=== PATIENT | male | born 1955 | race Caucasian/White ===

== ENCOUNTER 2020-05-09 18:16 | Emergency (ER) | payer MEDICARE, BC ==
[~2020-05-09] VITALS: Ht 177.8 cm; Wt 80.7 kg
--- NOTE | 2020-05-09 18:24 | PHYS DOC ---
General Adult HPI: HPI: "..I got my finger tips almost completely twisted off...I was feeding a snake to clean out a offbearer sewer pipe drain.. the cotton gloves got caught.. and twisted off the tips of my fingers...".. Patient is a 64 year old male who presents with above history and injuries to fingers 3 4 and 5 on right hand. Tips of her fingers are angulated and have open fractures with the bone exposed. No distal sensation, and tips are dusky. Patient is right-hand dominant. Patient does not remember his last tetanus shot. No recent travel. No sick ill contacts. Patient last ate a meal at breakfast. No history immunosuppression. Pt. primary is Dr. Ibanez. Review of Systems: Review of Systems: Constitutional: Denies fever or chills Eyes: Denies change in visual acuity HENT: Denies nasal congestion or sore throat Respiratory: Denies cough or shortness of breath Cardiovascular: Denies chest pain or edema GI: Denies abdominal pain, nausea, vomiting, bloody stools or diarrhea : Denies dysuria Musculoskeletal: Complains of partial amputation to tips fingers 3 4 and 5 Integument: Denies rash Neurologic: Denies headache, focal weakness or sensory changes Endocrine: Denies polyuria or polydipsia Lymphatic: Denies swollen glands Psychiatric: Denies depression or anxiety Family History: Family History: Noncontributory to presentation Current Medications: Current Meds: See nursing for home meds Allergies: Allergies: No known drug allergies Physical Exam: PE: Constitutional: Well developed, well nourished,in acute distress, non-toxic appearance. [] HENT: Normocephalic, atraumatic, bilateral external ears normal, oropharynx moist, no oral exudates, nose normal. [] Eyes: PERRLA, EOMI, conjunctiva normal, no discharge. [] Neck: Normal range of motion, no tenderness, supple, no stridor. [] Cardiovascular:Heart rate regular rhythm, no murmur [] Lungs & Thorax: Bilateral breath sounds clear to auscultation [] Abdomen: Bowel sounds normal, soft, no tenderness, no masses, no pulsatile masses. [] Skin: Warm, dry, no erythema, no rash. [] Back: No tenderness, no CVA tenderness. [] Extremities: No tenderness, no cyanosis, no clubbing, ROM intact, no edema. Except injuries as noted and fingers 3, 4 and 5 right hand Neurologic: Alert and oriented X 3, normal motor function, normal sensory f unction, no focal deficits noted. [] Psychologic: Affect normal, judgement normal, mood normal. [] EKG: EKG: My interpretation of EKG shows a sinus bradycardia rhythm at 59 bpm. No acute morphology Radiology/Procedures: Radiology/Procedures: [][address] [address] IMAGING REPORT Signed PATIENT: CARMEN HUDDLESTON LACCOUNT: [id number] : 1955 LOCATION: ER AGE: 64 SEX: M EXAM STATUS: REG ER ORD. PHYSICIAN: KEELY ROSAS MD REASON: Injury, partial amputation fingers PROCEDURE: HAND RIGHT 3V Exam: Right hand 3 views INDICATION: Injury, partial amputation TECHNIQUE: Frontal, lateral and oblique views of the right hand Comparisons: None FINDINGS: There is open fractures of the distal phalanx of the third and fourth digit which are severely displaced. Joint spaces are well-maintained. Soft tissues are unremarkable. Bone mineralization is normal. IMPRESSION: Open fractures of the distal phalanx of the third fourth digits which are severely displaced. Electronically signed by: Jomar Baez MD (05/09/2020 7:02 PM) [facility] DICTATED AND SIGNED BY: JOMAR BAEZ MD DATE: 05/09/201901 CC: KEELY ROSAS MD; PCP,NO ~MTH0 0 Heart Score: Risk Factors: Risk Factors: DM, Current or recent (<one month) smoker, HTN, HLP, family history of CAD, obesity. Risk Scores: Score 0 - 3: 2.5% MACE over next 6 weeks - Discharge Home Score 4 - 6: 20.3% MACE over next 6 weeks - Admit for Clinical Observation Score 7 - 10: 72.7% MACE over next 6 weeks - Early Invasive Strategies Course & Med Decision Making: Course & Med Decision Making Pertinent Labs and Imaging studies reviewed. (See chart for details) Fingers cleaned and irrigated with LR. Soaking hand in an attempt to remove ground in dirt and sewage in LR... Patient to receive Rocephin 1 g and Flagyl 500. Patient's tetanus is updated. Digit block with Lidocaine and Sensorcaine. Call placed to transfer center at 1830.Repeat irrigation of and dry dressing applied. Pt. Accepted in transfer to Pre/Post op- Dr. De La Cruz accepting. Impression: 1. Partial amputation fingers 3 4 and 5 right hand. [] Dragon Disclaimer: Dragon Disclaimer: This electronic medical record was generated, in whole or in part, using a voice recognition dictation system. Departure Departure: Referrals: PCP,NO (PCP) [place] Disclaimer This chart was dictated in whole or in part using Voice Recognition software in a busy, high-work load, and often noisy Emergency Department environment. It may contain unintended and wholly unrecognized errors or omissions. KEELY ROSAS MD May 09, 2020 18:24
[2020-05-09] MEDS ORDERED: LIDOCAINE 2% 20 ML VIAL. IJ ONE ×2 (18:30→19:00)
[2020-05-09] MEDS ORDERED: TETANUS AND DIPHTHERIA TOX/PF 0.5 ML VIAL. VAX IM ONE (18:30)
[2020-05-09] MEDS ORDERED: MORPHINE SULFATE 10 MG/ML SYRINGE. SQ ONE (18:30)
[2020-05-09] MEDS ORDERED: cefTRIAXone SODIUM 1 GM VIAL ONE (18:34)
[2020-05-09] MEDS ORDERED: IV NORMAL SALINE 50ML 50 ML ONE (18:34)
[2020-05-09] MEDS ORDERED: BUPIVACAINE MPF 0.5% 30 ML VIAL. SQ ONE (19:00)
--- NOTE | 2020-05-09 19:05 | RAD ---
Exam: Right hand 3 views INDICATION: Injury, partial amputation TECHNIQUE: Frontal, lateral and oblique views of the right hand Comparisons: None FINDINGS: There is open fractures of the distal phalanx of the third and fourth digit which are severely displaced. Joint spaces are well-maintained. Soft tissues are unremarkable. Bone mineralization is normal. IMPRESSION: Open fractures of the distal phalanx of the third fourth digits which are severely displaced. Electronically signed by: Jomar Amado MD (05/09/2020 7:02 PM) JD
[2020-05-09 19:06] LABS: CALCIUM 9.3 mg/dL (8.5-10.1); CREATININE 1.2 mg/dL (0.7-1.3); GFR 60.6; POTASSIUM 3.9 mmol/L (3.5-5.1)
[2020-05-09 19:10] LABS: BASO # 0.1 x10^3/uL (0.0-0.2); BASO % 1 % (0-3); EOS # 0.4 x10^3/uL (0.0-0.7); EOS % 4 % (0-3); HEMATOCRIT 47.6 % (39.0-53.0); LYMPH % 28 % (24-48); MEAN CORPUSCULAR HEMOGLOBIN 31 pg (25-35); MEAN CORPUSCULAR HGB CONC 34 g/dL (31-37); MEAN CORPUSCULAR VOLUME 91 fL (79-100); MONO % 9 % (0-9); NEUT # 6.1 x10^3uL (1.8-7.7); NEUT % 58 % (31-73); PLATELET COUNT 292 x10^3/uL (140-400); RED BLOOD COUNT 5.21 x10^6/uL (4.30-5.70); RED CELL DISTRIBUTION WIDTH 13.3 % (11.5-14.5); WHITE BLOOD COUNT 10.6 x10^3/uL (4.0-11.0)
[2020-05-09 19:26] VITALS: BP 131/60
--- NOTE | 2020-05-09 21:16 | EKG ---
[facility] ED [facility] [address] [place] [id number] Test Date: 2020-05-09 Test Time: 19:05:21 Pat Name: CARMEN HUDDLESTON Department: Room: Gender: M In Home Aide: MARY : 1955 Requested By: KEELY ROSAS Order Number: [id number] Reading MD: Measurements Intervals Allons Rate: 59 P: 30 MD: 132 QRS: 15 QRSD: 94 T: 23 QT: 418 QTc: 414 Interpretive Statements SINUS RHYTHM NORMAL ECG RI6.02 No previous ECG available for comparison
== END 2020-05-09 19:30 | disposition short-term general hospital (02) ==
LOC: ER 18:16
DX: S68.122A Partial traumatic metacarpophalangeal amputation of right middle finger, initial encounter (principal); S68.124A Partial traumatic metacarpophalangeal amputation of right ring finger, initial encounter; S68.126A Partial traumatic metacarpophalangeal amputation of right little finger, initial encounter; W23.0XXA Caught, crushed, jammed, or pinched between moving objects, initial encounter; Y93.89 Activity, other specified; Y92.89 Other specified places as the place of occurrence of the external cause; Y99.8 Other external cause status
CPT/HCPCS: 36415; 64450; 73130; 80048; 84484; 85025; 90471; 90714; 93005; 96365; 96372; 96375; 99285; J0696; J2001; J2270; J3490